=== PATIENT | male | born 1960 | race Caucasian/White ===

== ENCOUNTER → 2019-06-15 14:00 | Outpatient (CLI) | payer OTHER, SELFPAY | PROVIDERS: PCP Family Medicine; Visit Provider Family Medicine | DX: G47.33 Obstructive sleep apnea (adult) (pediatric) (principal); R40.0 Somnolence; R06.83 Snoring; E66.9 Obesity, unspecified; I10 Essential (primary) hypertension | CPT/HCPCS: 95806 ==

== ENCOUNTER → 2019-06-30 09:02 | Outpatient (CLI) | payer OTHER, SELFPAY ==
--- NOTE | 2019-06-30 09:05 | XR_ITS ---
PROCEDURE: XR SHOULDER RT MIN 2V CLINICAL INDICATION: shoulder pain COMPARISON: No exams were available for comparison FINDINGS: There are postsurgical changes with a large staple along the anterior aspect of the glenoid region. Moderate to severe osteoarthritic changes are present at the glenohumeral joint with loss of joint space and osteophyte formation. There is some deformity of the humeral head which could be related to an old fracture. No acute fracture or dislocation. Mild degenerative changes are present at the AC joint. IMPRESSION: Degenerative changes and postsurgical changes as described above. Severe osteoarthritis of the glenohumeral joint with dysplastic changes Dictated by: Jarett Olson MD 06/30/2019 13:13 Electronically signed by Jarett Olson MD in [place] 06/30/2019 13:13
== END ==
PROVIDERS: PCP Family Medicine; Visit Provider Orthopaedic Surgery
DX: M25.511 Pain in right shoulder (principal)
CPT/HCPCS: 73030

== ENCOUNTER → 2021-05-12 11:55 | Outpatient (CLI) | payer OTHER, SELFPAY | PROVIDERS: PCP Family Medicine; Visit Provider Nurse Practitioner | DX: U07.1 COVID-19 (principal) | CPT/HCPCS: C9803; U0003; U0005 ==

== ENCOUNTER 2021-05-15 08:21 | Outpatient (CLI) | payer OTHER, SELFPAY ==
[2021-05-15] VITALS (8 sets, daily range): BP systolic 111–139; BP diastolic 69–91; PULSE 63–85; RESP 16–18; TEMP 36.6; O2SAT 95–98
== END 2021-05-15 12:46 | disposition home or self-care (01) ==
LOC: COVID.OUT 08:21
PROVIDERS: PCP Family Medicine; Visit Provider Family Medicine
DX: U07.1 COVID-19 (principal); Z23 Encounter for immunization
CPT/HCPCS: 96365

== ENCOUNTER 2025-01-03 07:57 | Outpatient (CLI) | payer OTHER, SELFPAY ==
--- OUTSIDE RECORDS SUMMARY | 2013-11-03 05:30 | XMS_ITS | Continuity of Care Document ---
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 Name Role Phone Vaishali LYNN, José Luis Unavailable Unavailable Allergies, Adverse Reactions, Alerts Substance Reaction Status Criticality No Known Allergies Active No Inform ation Medications Medication Instructions Dosage Effective Dates (start - stop) Status Comments Men's Multi-Vitamin tablet take 1 Tablet by Oral route every morning 1 Tablet - Active Procedures Procedure Date EYE EXAM, COMPREHENSIVE, NEW PATIENT Oct CORNEAL TOPOGRAPHY Advance Directives Directive Yes / No Effective Date File Name No Information Encounters Encounter Description Practice Location Reason(s) For Visit Diagnoses Date Provider Providers Copied on Encounter [facility], [address] [place] [address], [id number], tel:[phone] [facility] KeratoconusIrregul ar astigmatism 0201 4 Vaishali Ordonez. [address] [place] [address], [id number] , . tel:[phone] Referring Provider: Joanna Dickinson, [address] [place], [address]. tel:[phone] Family History Family Member Type Diagnosis Age At Onset Problem (finding) Family history of Cance r, unknown Payers Payer name Insurance type Covered democrat ID Authorleoa tihaleigh(s) [facility] 1000 [id number] Social History Type Description Quantity Date Captured Comments Alcohol Use Details Caffeine Use Details Unknown Tobacco Use Status Never smoked tobacco 2013 Smoking Status Never smoker Non-Smoking Tobacco Use Details : No Details Available : No Details Available Sex Male Chief Complaint And Reason For Visit From encounter dated '11/03/2013 09:30'. corneal evaluation (chief complaint). Description: Pt states he had allergies back in Jun and noticed his vision OD was down. He related that to the allergies. After about 1 month there was no improvement so he went to see Dr. Nuno. She noticed decrease in OD vision as well. She put him on maxitrol but no help. He started [place] [address] [place] at night and it helped some but not a major improvement. PT states no pain just vision decrease. OS is fine. Pt wears scl ou. Reason For Referral Reason For Referral No Information History Of Present Illness Encounter Date Complaint History Of Prese nt Illness corneal evaluation Pt states he had allergies back in Jun and noticed his vision OD was down. He related that to the allergies. After about 1 month there was no improvement so he went to see Dr. Nuno. She noticed decrease in OD vision as well. She put him on maxitrol but no help. He started [place] [address] [place] at night and it helped some but not a major improvement. PT states no pain just vision decrease. OS is fine. Pt wears scl ou. Functional Status Date Functional Assessmen t No Information Instructions Date Instruction Additional Infor bernabe - See Dr Keith fo r Specialty Cl's fitting Related to Keratoconus - Irreg Shape cornea OS also, not nearly as progressed as OD Related to Irregular astigmatism - Kcn OD disc, not s omething that would have happen all of the sudden, Pentacam exp, very warped cornea OD, have to quit rubbing your eyes, need to try specialty cl's OD, not recommending sx at this time, will discuss if you don't tolerate cl's Related to Keratoconus Assessments Type Assessment Date assessment Keratoconus assessment Irregular astigmatism 4 Patient Care Teams Name Effective Dates (start - stop) Status Members No Information
--- NOTE | 2025-01-03 07:58 | XR_ITS ---
FINAL REPORT CLINICAL HISTORY: right knee pain FINDINGS: Right knee Three views were obtained. There is no fracture or dislocation. There is moderate medial compartment joint space narrowing with subchondral sclerosis and osteophyte formation. Small osteophytes are seen along the undersurface of the patella. No soft tissue abnormality is identified. IMPRESSION: Moderately advanced hypertrophic changes of osteoarthritis. Reviewed, Interpreted and Dictated by Tate Amador MD Transcribed by Rosy Levin Authenticated and [facility]
== END 2025-01-03 23:59 | disposition home or self-care (01) ==
LOC: RAD 07:58
PROVIDERS: Visit Provider Physician Assistant
DX: M17.11 Unilateral primary osteoarthritis, right knee (principal)
CPT/HCPCS: 73562

== ENCOUNTER 2025-01-03 09:32 | Outpatient (RCR) | payer OTHER, SELFPAY | END 2025-01-03 23:59 | disposition home or self-care (01) | LOC: PT 09:32 | PROVIDERS: Visit Provider Physician Assistant | DX: M25.561 Pain in right knee (principal) | CPT/HCPCS: 97760 ==